=== PATIENT | female | born 1990 | race Caucasian/White ===

== ENCOUNTER 2022-06-24 21:54 | Emergency (ER) | payer MEDICAID ==
[~2022-06-24] VITALS: Ht 157.5 cm; Wt 54.5 kg
[~2022-06-24 21:54] MED LIST: METH-360 PO
[2022-06-25 02:04] VITALS: BP 108/57
[2022-06-25 02:28] LABS: CLARITY,URINE CLEAR (Clear); COLOR,URINE YELLOW (Yellow); GLUCOSE, URINE NEGATIVE (Neg); KETONES,URINE TRACE mg/dl (Neg); LEUKOCYTE ESTERASE ,URINE NEGATIVE (Neg); NITRITES, URINE NEGATIVE (Neg); OCCULT BLOOD,URINE TRACE-INTACT (Neg); PROTEIN,URINE NEGATIVE (Neg); UA COLLECTION TYPE NON-SPECIFIED; UROBILINOGEN,URINE 0.2 E.U/dL (0.2-1.0)
[2022-06-25 02:38] LABS: BACTERIA,URINE FEW /HPF (Neg); RBC,URINE 0-2 /HPF (0-2); SQUAMOUS EPITHELIAL CELL,UR FEW /LPF (FEW); WBC,URINE NONE SEEN /HPF (0-4)
[2022-06-25] MEDS ORDERED: ibuprofen tablet 400 MG TABLET PO ONE (04:10)
--- NOTE | 2022-06-25 04:38 | NUR ---
PT LEFT IMMEDIATELY AFTER SPEAKING WITH JAGDISH GIL, BEFORE DISCHARGE PAPERWORK AND MEDICATION WAS GIVEN
== END 2022-06-25 04:41 | disposition home or self-care (01) ==
LOC: ER 21:55
DX: M54.9 Dorsalgia, unspecified (principal); Z56.0 Unemployment, unspecified
CPT/HCPCS: 81001; 99283